=== PATIENT | female | born 1990 | race African-American/Black ===

== ENCOUNTER 2018-09-04 01:26 | Emergency (ER) | payer MEDICAID ==
[~2018-09-04] VITALS: Ht 170.2 cm; Wt 77.1 kg
[2018-09-04 01:46] VITALS: BP 112/79
[2018-09-04] MEDS ORDERED: methylPREDNISolone SOD SUCC 125 MG/2 ML VL IM ONE (05:30)
[2018-09-04] MEDS ORDERED: KETOROLAC TROMETH 60MG/2ML VIAL IM ONE (05:30)
== END 2018-09-04 06:33 | disposition home or self-care (01) ==
LOC: ER 01:37
DX: G43.909 Migraine, unspecified, not intractable, without status migrainosus (principal)
CPT/HCPCS: 81025; 96372; 99283; J1885; J2930

== ENCOUNTER 2018-09-25 12:41 | Emergency (ER) | payer MEDICAID ==
[~2018-09-25] VITALS: Ht 167.6 cm; Wt 63.5 kg
[2018-09-25 14:08] LABS: Urine Bacteria FEW /hpf (None Seen); Urine Blood 2+ /uL (Negative); Urine Specific Gravity 1.005 (1.001-1.035); Urine WBC 31 /hpf (0 - 5)
[2018-09-25 14:09] LABS: Alcohol, Urine < 3.0 mg/dL (0-5); Amphetamine Screen, Urine NEGATIVE (NEGATIVE); Barbiturate Scree,Urine NEGATIVE (NEGATIVE); Benzodiazephine Screen, Urine NEGATIVE (NEGATIVE); Cannabinoid Screen, Urine NEGATIVE (NEGATIVE); Cocaine Screen, Urine NEGATIVE (NEGATIVE); Opiate Scree,Urine NEGATIVE (NEGATIVE); Phencyclidine Screen, Urine NEGATIVE (NEGATIVE)
[2018-09-25 17:41] VITALS: BP 115/68
== END 2018-09-25 18:04 | disposition home or self-care (01) ==
LOC: ER 12:41
DX: R11.10 Vomiting, unspecified (principal); N39.0 Urinary tract infection, site not specified
CPT/HCPCS: 80307; 81001